=== PATIENT | female | born 2005 | race Caucasian/White ===

== ENCOUNTER 2025-02-18 11:47 | Outpatient (CLI) | payer OTHER, SELFPAY ==
[2025-02-18 12:44] LABS: Beta HCG Quantitative < 2.39 mIU/ML
--- OUTSIDE RECORDS SUMMARY | 2025-02-18 13:13 | XMS_ITS | Clinical Summary ---
Author Organization [facility] Address [facility] [place] [address] Care Team Providers Care Licensed Final Expense Agents Name Role Phone Twila Baird Primary Care Provider [phone] Allergies No known active allergies Medications fish oil (OMEGA-3 FATTY ACID) 1000 MG Cap capsule Take 1,000 mg by mouth 2 (two) times daily. Active Magnesium 100 MG Cap Active vitamin D3, cholecalciferol , (VITAMIN D) 1000 UNIT Tab tablet Take 1 tablet by mouth daily. Active ferrous sulfate, 65 mg elemental, 325 (65 FE) MG tablet Take 325 mg by mouth daily with breakfast. Active MEDROXYPROGESTE YOJANA 150 MG/ML injectionIndica tions:Menorrhag ia with irregular cycle ADMINISTER 1 ML(150 MG) IN THE MUSCLE EVERY 3 MONTHS 1 mL 4 1 Active Active Problems Problem Noted Date Diagnosed Date B12 deficiency 01/05/2021 Syncope, unspecified syncope type 01/12/2019 Menorrhagia with irregular cycle 01/12/2019 Vitamin D deficiency 01/12/2019 Fracture of distal end of tibia 07/01/2015 Closed fracture of tibia and fibula 06/08/2015 Fracture of foot 05/05/2015 Family History Medical History Relation Comments Heart Disease Father Cancer Maternal Grandmother breast Anemia Mother Heart Disease Paternal Aunt 1 Rheumatoid Arthritis Paternal Aunt 1 Heart Disease Paternal Aunt 2 Relation Status Comments Father Alive Maternal Grandmother Mother Alive Paternal Aunt 1 Paternal Aunt 2 Social History Tobacco Use Types Packs/Day Years Used Date Smoking Tobacco: Never Smokeless Tobacco: Never Alcohol Use Standard Drinks/Week Comments No 0 (1 standard drink = 0.6 oz pur e alcohol) AUDIT-C Answer Date Recorded Frequency of Alcohol Consumption Never 01/06/2019 Average Number of Drinks Not on file 019 Frequency of Binge Drinking Not on file 12/27 PHQ-2 Answer Date Recorded PHQ-2 Score - If the patient scores above 3, please move on to questions 3-9 2 01/03/2021 Comments No Sex and Gender Information Value Date Recorded Sex Assigned at Not on file Legal Sex Female 2:41 PM CONCENTRATOR OPERATOR Gender Identity Not on file Sexual Orientation Not on file Last Filed Vital Signs Vital Sign Reading Time Taken Comments Blood Pressure 119/70 01/03/2021 3:21 PM CONCENTRATOR OPERATOR Pulse 88 01/03/2021 3:21 PM CONCENTRATOR OPERATOR Temperature 36.6 C (97.8 F) 01/03/2021 3:21 PM CONCENTRATOR OPERATOR Respiratory Rate 16 01/03/2021 3:21 PM CONCENTRATOR OPERATOR Oxygen Saturation 98% 01/03/2021 3:21 PM CONCENTRATOR OPERATOR Inhaled Oxygen Concentration - - Weight 85.7 kg (189 lb) 01/03/2021 3:21 PM CONCENTRATOR OPERATOR Height 172.7 cm (5' 8 ) 01/03/2021 3:21 PM CONCENTRATOR OPERATOR Body Mass Index 28.74 01/03/2021 3:21 PM CONCENTRATOR OPERATOR Plan of Treatment Health Maintenance Due Date Last Done Comments Annual Physical 02/01/2008 HPV Vaccines (2 - 2-dose series) 11/15/2016 05/16/2016 Meningococcal B Vaccine (1 o f 2 - Standard) 2021 Hepatitis C 2023 DTaP, Tdap and Td Vaccines ( 4 - Tdap) 02/01/2024 2005, 2005, 2005 COVID-19 Vaccine (2023-2 5 season) 2024 Influenza Adult (#1) 2024 PHQ-2 (Physician Delia) 11/26/2024 Hepatitis B Vaccines Completed 2005, 2005, 2005 Meningococcal Vaccine Aged Out 05/16/2016 No patito evaristo eligible based on patient's age to complete this topic Pneumococcal Vaccine: Pediatrics (0 to 5 Years) and At-Risk Patients (6 to 64 Years) Aged Out No longer eligible b ased on patient's age to complete this topic RSV Immunizations Under 20 Months Aged Out No longer eligible b ased on patient's age to complete this topic Insurance [facility] Care Teams Licensed Final Expense Agents Relationship Specialty Start Date End Date Twila Baird FNP [address] [place] [id number] PCP - General Nurse Practitioner Family 12/30/18
== END 2025-02-18 11:48 | disposition home or self-care (01) ==
LOC: ANHLAB 11:49
PROVIDERS: PCP Pediatrics; Visit Provider Obstetrics & Gynecology
DX: Z30.9 Encounter for contraceptive management, unspecified (principal)
CPT/HCPCS: 36415; 84702